=== PATIENT | female | born 1995 | race Two or more races ===

== ENCOUNTER 2020-09-03 10:51 | Emergency (ER) | payer OTHER ==
[~2020-09-03] VITALS: Ht 167.6 cm; Wt 113.4 kg
[2020-09-03 11:20] VITALS: BP 155/90
[2020-09-03] MEDS ORDERED: IBUPROFEN 800 MG TAB PO ONE (12:30)
[2020-09-03] MEDS ORDERED: cefTRIAXone SOD 1,000 MG VL IM ONE (12:30)
== END 2020-09-03 12:33 | disposition home or self-care (01) ==
LOC: ER 10:51
DX: L03.317 Cellulitis of buttock (principal)
CPT/HCPCS: 96372; 99283; J0696

== ENCOUNTER 2020-09-17 09:56 | Emergency (ER) | payer OTHER ==
[~2020-09-17] VITALS: Ht 167.6 cm; Wt 99.8 kg
[2020-09-17 10:20] VITALS: BP 119/77
[2020-09-17 10:31] LABS: Urine Bacteria NONE SEEN /hpf (None Seen); Urine Blood Negative /uL (Negative); Urine Mucus FEW (None Seen); Urine Specific Gravity 1.029 (1.001-1.035); Urine WBC 4 /hpf (0 - 5)
[2020-09-17 10:40] LABS: Basophils # (auto) 0.1 10 ^3/uL (0-0.2); Eosinophils # (auto) 0.1 10 ^3/uL (0-0.8); Lymphocytes # (auto) 2.4 10 ^3/uL (0.4-5.4); Mean Corpuscular Hgb Conc. 32.7 g/dL (32.0-36.0); Monocytes # (auto) 0.7 10 ^3/uL (0-1.3)
[2020-09-17 10:42] LABS: Basophils % (auto) 0.6 % (0.0-2.0); Hemoglobin 11.1 g/dL (12.2-16.2); Lymphocytes % (auto) 31.1 % (10.0-50.0); Mean Corpuscular Hemoglobin 24.1 pg (28.0-32.0); Mean Corpuscular Volume 73.8 fL (80.0-100.0); Monocytes % (auto) 8.6 % (0.0-12.0); Neutrophils # (auto) 4.6 10 ^3/uL (1.6-8.6); Neutrophils % (auto) 58.7 % (37.0-80.0); Nucleated Red Blood Cells % 0.1 %; Red Blood Cells 4.61 10^6/uL (4.0-5.20); Red Cell Distribution Width 18.2 % (11.8-14.3); White Blood Cell 7.8 10^3/uL (4.4-10.8)
[2020-09-17 10:58] LABS: Albumin 3.2 g/dL (3.4-5.0); Calcium 8.2 mg/dL (8.5-10.1); Potassium 3.8 mmol/L (3.5-5.1)
[2020-09-17 11:03] LABS: BUN/Creatinine Ratio 10.6; Bilirubin, Total 0.2 mg/dL (0.2-1.0); Total Protein 7.4 g/dL (6.4-8.2)
== END 2020-09-17 12:03 | disposition home or self-care (01) ==
LOC: ER 09:56
DX: O23.41 Unspecified infection of urinary tract in pregnancy, first trimester (principal); F41.9 Anxiety disorder, unspecified; O99.331 Smoking (tobacco) complicating pregnancy, first trimester; F17.210 Nicotine dependence, cigarettes, uncomplicated; Z3A.08 8 weeks gestation of pregnancy
CPT/HCPCS: 36415; 80053; 81001; 84702; 85025; 93005

== ENCOUNTER 2023-02-12 01:51 | Emergency (ER) | payer MEDICAID, OTHER ==
[~2023-02-12] VITALS: Ht 167.6 cm; Wt 143.0 kg
[2023-02-12 02:23] VITALS: BP 156/105; RESP 18; O2SAT 98
[2023-02-12 02:39] VITALS: PULSE 92
[2023-02-12 03:14] LABS: Basophils # (auto) 0 10 ^3/uL (0-0.2); Basophils % (auto) 0.3 % (0.0-2.0); Eosinophils # (auto) 0.1 10 ^3/uL (0-0.8); Hemoglobin 9.9 g/dL (12.2-16.2); Mean Corpuscular Hemoglobin 21.1 pg (28.0-32.0); Mean Corpuscular Hgb Conc. 30.1 g/dL (32.0-36.0); Monocytes # (auto) 0.5 10 ^3/uL (0-1.3)
[2023-02-12 03:15] LABS: Eosinophils % (auto) 0.9 % (0.0-7.0); Lymphocytes # (auto) 2.6 10 ^3/uL (0.4-5.4); Mean Corpuscular Volume 70.2 fL (80.0-100.0); Neutrophils # (auto) 4.5 10 ^3/uL (1.6-8.6); Neutrophils % (auto) 57.8 % (37.0-80.0); Nucleated Red Blood Cells % 0.1 %; White Blood Cell 7.8 10^3/uL (4.4-10.8)
[2023-02-12 03:22] LABS: Alanine Aminotransferase 29 U/L (7-40); Albumin 4.8 g/dL (3.2-4.8); Alkaline Phosphatase 81 U/L (46-116); Anion Gap 7 (5-15); Aspartate Aminotransferase 20 U/L (13-40); Blood Urea Nitrogen 8 mg/dL (9-23); Carbon Dioxide 24 mmol/L (20-30); Chloride 106 mmol/L (98-107); Glucose 84 mg/dL (74-106); Magnesium 2.2 mg/dL (1.6-2.6); Potassium 4.1 mmol/L (3.5-5.1); Sodium 137 mmol/L (136-145)
[2023-02-12 03:23] LABS: Bilirubin, Total 0.4 mg/dL (0.2-1.0); Total Protein 7.7 g/dL (5.7-8.2)
[2023-02-12 03:28] LABS: Red Cell Distribution Width 20.1 % (11.8-14.3)
[2023-02-12 04:48] LABS: Urine Bacteria NONE SEEN /hpf (None Seen); Urine Blood Negative /uL (Negative); Urine Clarity Clear (Clear); Urine Color Colorless (Yellow); Urine Protein, UAD Negative (Negative); Urine Specific Gravity 1.021 (1.001-1.035); Urine Urobilinogen Normal (Negative); Urine WBC 1 /hpf (0 - 5); Urine pH 6.5 (5.0-8.0)
== END 2023-02-12 05:58 | disposition home or self-care (01) ==
LOC: ER 01:51
DX: R00.2 Palpitations (principal); D64.9 Anemia, unspecified; R07.9 Chest pain, unspecified; K08.89 Other specified disorders of teeth and supporting structures; F17.210 Nicotine dependence, cigarettes, uncomplicated; Z79.899 Other long term (current) drug therapy
CPT/HCPCS: 36415; 71045; 80053; 81001; 83735; 84484; 85025; 93005

== ENCOUNTER 2023-06-30 13:19 | Emergency (ER) | payer MEDICAID ==
[~2023-06-30] VITALS: Ht 167.6 cm; Wt 113.5 kg
[2023-06-30 14:00] VITALS: PULSE 84; RESP 28; O2SAT 96
[2023-06-30 14:35] LABS: Basophils # (auto) 0.1 10 ^3/uL (0-0.2); Basophils % (auto) 0.8 % (0.0-2.0); Eosinophils # (auto) 0.1 10 ^3/uL (0-0.8); Eosinophils % (auto) 1.2 % (0.0-7.0); Hematocrit 39.2 % (36.0-46.0); Hemoglobin 11.8 g/dL (12.2-16.2); Lymphocytes # (auto) 1.2 10 ^3/uL (0.4-5.4); Lymphocytes % (auto) 19.8 % (10.0-50.0); Mean Corpuscular Hgb Conc. 30.2 g/dL (32.0-36.0); Mean Corpuscular Volume 69.7 fL (80.0-100.0); Monocytes # (auto) 0.7 10 ^3/uL (0-1.3); Monocytes % (auto) 11.7 % (0.0-12.0); Neutrophils # (auto) 3.9 10 ^3/uL (1.6-8.6); Neutrophils % (auto) 66.5 % (37.0-80.0); Nucleated Red Blood Cells % 0.1 %; Red Blood Cells 5.62 10^6/uL (4.0-5.20); White Blood Cell 5.9 10^3/uL (4.4-10.8)
[2023-06-30 14:36] LABS: Red Cell Distribution Width 20.7 % (11.8-14.3)
[2023-06-30 14:41] LABS: Chloride 104 mmol/L (98-107); Potassium 3.7 mmol/L (3.5-5.1); Sodium 136 mmol/L (136-145)
[2023-06-30 14:42] LABS: Anion Gap 14 (5-15); Calcium 10.1 mg/dL (8.5-10.1); Carbon Dioxide 18 mmol/L (20-30)
[2023-06-30 14:47] LABS: Glucose 74 mg/dL (74-106)
[2023-06-30 14:50] LABS: Urine Bacteria None Seen /hpf (None Seen)
[2023-06-30 14:54] LABS: BUN/Creatinine Ratio 5.8 (10.0-20.0); Blood Urea Nitrogen < 5 mg/dL (9-23)
[2023-06-30 15:14] LABS: Urine Blood 3+ /uL (Negative); Urine Clarity Turbid (Clear); Urine Color Brown (Yellow); Urine Mucus FEW (None Seen); Urine Protein, UAD 3+ (Negative); Urine Specific Gravity 1.035 (1.001-1.035); Urine Urobilinogen 4 mg/dL (Negative); Urine WBC 121 /hpf (0 - 5); Urine WBC Clumps PRESENT /hpf (None Seen)
[2023-06-30 15:22] LABS: Amphetamine Screen, Urine Neg (NEGATIVE); Barbiturate Scree,Urine Neg (NEGATIVE); Benzodiazephine Screen, Urine Neg (NEGATIVE); Cocaine Screen, Urine Neg (NEGATIVE)
[2023-06-30 15:23] LABS: Cannabinoid Screen, Urine Neg (NEGATIVE); Opiate Scree,Urine Neg (NEGATIVE); Phencyclidine Screen, Urine Neg (NEGATIVE)
[2023-06-30] MEDS ORDERED: NITR-87 PO (15:55)
[2023-06-30] MEDS: SODIUM CHLORIDE 0.9% 1,000 ML IV ONE (16:09)
[2023-06-30] MEDS: cefTRIAXone 1GM/50ML D5W 50 ML IV ONE (16:12)
[2023-06-30 17:00] VITALS: BP 126/91; PULSE 79; RESP 22; O2SAT 100
== END 2023-06-30 17:28 | disposition home or self-care (01) ==
LOC: EDBD 13:19 → ER 13:19
DX: N39.0 Urinary tract infection, site not specified (principal); F17.210 Nicotine dependence, cigarettes, uncomplicated; R53.1 Weakness; Z79.899 Other long term (current) drug therapy
CPT/HCPCS: 36415; 80048; 80307; 81001; 85025; 93005; 96365; 99285; J0696; J7030

== ENCOUNTER 2024-01-29 17:47 | Emergency (ER) | payer MEDICAID ==
[~2024-01-29] VITALS: Ht 170.2 cm; Wt 90.0 kg
[~2024-01-29 17:47] MED LIST: NITR-87 PO
--- NOTE | 2024-01-29 17:58 | ECG ---
[facility] Test Date: 2024-01-29 Test Time: 17:57:21 Pat Name: ILANA HERNANDEZ Department: er Room: Gender: F Cephalometric Analyst: yolanda : 1995 Requested By: ANTONI NICHOLAS Order Number: [id number] Reading MD: Darci Stark Measurements Intervals [place] Rate: 81 P: 37 MO: 164 QRS: 73 QRSD: 82 T: 25 QT: 336 QTc: 390 Interpretive Statements Sinus rhythm Low voltage, precordial leads Electronically Signed On 02-03-2024 12:33:25 PST by Darci Stark Please click the below link to view image of tracing.
--- NOTE | 2024-01-29 18:08 | ED.PDOC ---
History of Present Illness HPI Comments 28F BIBA w/ no prior Hx associated to the c/c of of palpitations. The palpitation was witnessed by the first responders who arrived on scene first, and the pt was sinus rhythm w/ PVC. Pt notes that she was sitting on her bed when palpitations began. PMHx of HTN, Asthma, and Anxiety. Denies chills, fever, N/V/D, SOB, CP or other associated symptoms, modifiers, or recent injuries at this time. Chief Complaint: Palpitations Time Seen by MD: 17:45 Primary Care Provider: BENJI Reviewed Notes: Nurses Notes, Medications, Allergies Allergies: Coded Allergies: No Known Drug Allergy (Verified Allergy, Unknown, 09/03/20) Home Meds Active Scripts Nitrofurantoin Monohydrate Mac (Macrobid) 100 Mg Cap, 100 MG PO BID for 7 Days, #14 CAP Prov:MANFRED MORALES MD 06/30/23 Information Source: Patient Mode of Arrival: EMS Severity: Moderate Timing: Minutes Duration: Since onset, Minutes Prehospital treatment: None Past Medical History PAST MEDICAL HISTORY: Anxiety, Asthma, HTN Surgical History: Denies all surgeries PUBLIC FINANCE SPECIALIST History: Denies all PUBLIC FINANCE SPECIALIST Hx Family History Family History: Reviewed,noncontributory to illness, Unknown Social History Smoker: Unknown Alcohol: Unknown Drugs: Unknown Lives In: Home Constitutional: denies: chills, diaphoresis, fatigue, fever, malaise, sweats, weakness, others EENTM: denies: blurred vision, double vision, ear bleeding, ear discharge, ear drainage, ear pain, ear ringing, eye pain, eye redness, hearing loss, mouth pain, mouth swelling, nasal discharge, nose bleeding, nose congestion, nose pain, photophobia, tearing, throat pain, throat swelling, voice changes, others Respiratory: denies: cough, hemoptysis, orthopnea, SOB at rest, shortness of breath, SOB with excertion, stridor, wheezing, others Cardiovascular: reports: chest pain, palpitations; denies: dizzy spells, diaphoresis, Dyspnea on exertion, edema, irregular heart beat, left arm pain, lightheadedness, PND, syncope, others Gastrointestinal: denies: abdomen distended, abdominal pain, blood streaked bowels, constipated, diarrhea, dysphagia, difficulty swallowing, hematemesis, melena, nausea, poor appetite, poor fluid intake, rectal bleeding, rectal pain, vomiting, others Genitourinary: denies: abnormal vagina bleeding, burning, dyspareunia, dysuria, flank pain, frequency, hematuria, incontinence, pain, , vagina discharge, urgency, others Neurological: denies: dizziness, fainting, headache, left sided numbness, left sided weakness, numbness, paresthesia, pre-existing deficit, right sided numbness, right sided weakness, seizure, speech problems, tingling, tremors, weakness, others Musculoskeletal: denies: back pain, gout, joint pain, joint swelling, muscle p ain, muscle stiffness, neck pain, others Integumetry: denies: bruises, change in color, change in hair/nails, dryness, laceration, lesions, lumps, rash, wounds, others Allergic/Immunocompromised: denies: Difficulty Healing, Frequent Infections, Hives, Itching, others Hematologic/Lymphatic: denies: anemia, blood clots, easy bleeding, easy bruising, swollen glands, others Endocrine: denies: excessive hunger, excessive sweating, excessive thirst, excessive urination, flushing, intolerance to cold, intolerance to heat, unexplained weight gain, unexplained weight loss, others Psychiatric: denies: anxiety, bipolar disorder, depression, hopeless, panic disorder, schizophrenia, sleepless, suicidal, others All Other Systems: Reviewed and Negative Physical Exam General Appearance: No Apparent Distress, Normal HEENT: Normal ENT Inspection, Pharynx Normal, TMs Normal Neck: Full Range of Motion, Non-Tender, Normal, Normal Inspection Respiratory: Chest Non-Tender, Lungs Clear, No Accessory Muscle Use, No Respiratory Distress, Normal Breath Sounds Cardiovascular: No Edema, No JVD, No Murmur, No Gallop, Normal Peripheral Pulses, Regular Rate/Rhythm Breast Exam: Deferred Gastrointestinal: No Organomegaly, Non Tender, No Pulsatile Mass, Normal Bowel Sounds, Soft Genitalia: Deferred Pelvic: Deferred Rectal: Deferred Extremities: No calf tenderness, Normal capillary refill, Normal inspection, Normal range of motion, Non-tender, No pedal edema Musculoskeletal : Apperance: Normal Neurologic: Alert, data security analyst II-XII nml as Tested, No Motor Deficits, Normal Affect, Normal Mood, No Sensory Deficits Cerebellar Function: Normal Reflexes: Normal Skin: Dry, Normal Color, Warm Lymphatic: No Adenopathy Was a procedure done? Was a procedure done?: No EKG EKG : Pulse Rate (adult): 81 Decker: Normal Cardiac Rhythm: NSR Block: None Hypertrophy: None ST: Normal Differential Dx Considerations may include: svt, afib, aflutter, vt, vfib, other arrhythmias X-Ray, Labs, Meds, VS Vital Signs Date Time Temp Pulse Resp B/P (MAP) Pulse Ox O2 Delivery O2 Flow Rate FiO2 01/29/24 18:08 81 01/29/24 17:53 98.3 80 16 138/71 (93) 99 Lab Test 01/29/24 18:09 Range/Units White Blood Count 6.6 4.4-10.8 10^3/uL Red Blood Count 4.73 4.0-5.20 10^6/uL Hemoglobin 9.9 L 12.2-16.2 g/dL Hematocrit 32.9 L 36.0-46.0 % Mean Corpuscular Volume 69.5 L 80.0-100.0 fL Mean Corpuscular Hemoglobin 20.9 L 28.0-32.0 pg Mean Corpuscular Hemoglobin Concent 30.1 L 32.0-36.0 g/dL Red Cell Distribution Width 22.0 H 11.8-14.3 % Platelet Count 321 140-450 10^3/uL Mean Platelet Volume 7.7 6.9-10.8 fL Neutrophils (%) (Auto) 63.3 37.0-80.0 % Lymphocytes (%) (Auto) 26.9 10.0-50.0 % Monocytes (%) (Auto) 8.7 0.0-12.0 % Eosinophils (%) (Auto) 0.6 0.0-7.0 % Basophils (%) (Auto) 0.5 0.0-2.0 % Neutrophils # (Auto) 4.1 1.6-8.6 10 ^3/uL Lymphocytes # (Auto) 1.8 0.4-5.4 10 ^3/uL Monocytes # (Auto) 0.6 0-1.3 10 ^3/uL Eosinophils # (Auto) 0 0-0.8 10 ^3/uL Basophils # (Auto) 0 0-0.2 10 ^3/uL Nucleated Red Blood Cells 0.1 % Sodium Level 140 136-145 mmol/L Potassium Level 3.6 3.5-5.1 mmol/L Chloride Level 112 H 98-107 mmol/L Carbon Dioxide Level 19 L 20-31 mmol/L Anion Gap 9 5-15 Blood Urea Nitrogen < 5 L 9-23 mg/dL Creatinine 0.79 0.550-1.02 mg/dL Glomerular Filtration Rate Calc 103 >90 mL/min BUN/Creatinine Ratio 6.3 L 10.0-20.0 Serum Glucose 84 74-106 mg/dL Calcium Level 9.5 8.7-10.4 mg/dL Troponin I High Sensitivity < 3 L </=34 ng/L Beta HCG, Quantitative Pending Time of 1ST Reevaluation: 18:15 Reevaluation 1ST: Unchanged Patient Education/Counseling: Diagnosis, Treatment, Prognosis, Need For Follow Up Family Education/Counseling: Other (Other family members that were there were the pt's little kids) Additional Information I reviewed the following notes from patient's past medical encounters:06/30/23 The following tests were ordered, and results were reviewed by me: Labs, XY, EKG I reviewed and agreed with the following test results read by other providers: X-Ray I discussed treatment and results with medical personnel pt appears anxious. investments manager captured only occasional PVCs. we have not captured any arrhythmias. pt's cardiac workup is unremarkable. she is stable to follow up with her PCP Departure 1 Departure Time of Disposition: 19:21 Impression: Primary Impression: Palpitations Disposition: HOME / SELF CARE / HOMELESS Condition: Good Additional Instructions: follow up with your doctor on Tuesday. feel free to return for anything concerning Discharged With: Self Critical Care Note Critical Care Time?: No Stability Stability form required: No I personally scribed for FELICIA ACOSTA MD ([email or web address]) on 01/29/24 at 18:08. Electronically submitted by Suhail Perez ([email or web address]). FELICIA ACOSTA MD Jan 29, 2024 18:08
[2024-01-29 18:26] LABS: Basophils # (auto) 0 10 ^3/uL (0-0.2); Basophils % (auto) 0.5 % (0.0-2.0); Eosinophils # (auto) 0 10 ^3/uL (0-0.8); Eosinophils % (auto) 0.6 % (0.0-7.0); Hematocrit 32.9 % (36.0-46.0); Hemoglobin 9.9 g/dL (12.2-16.2); Lymphocytes # (auto) 1.8 10 ^3/uL (0.4-5.4); Lymphocytes % (auto) 26.9 % (10.0-50.0); Mean Corpuscular Hemoglobin 20.9 pg (28.0-32.0); Mean Corpuscular Hgb Conc. 30.1 g/dL (32.0-36.0); Mean Corpuscular Volume 69.5 fL (80.0-100.0); Monocytes # (auto) 0.6 10 ^3/uL (0-1.3); Monocytes % (auto) 8.7 % (0.0-12.0); Neutrophils # (auto) 4.1 10 ^3/uL (1.6-8.6); Neutrophils % (auto) 63.3 % (37.0-80.0); Nucleated Red Blood Cells % 0.1 %; Platelet Count (auto) 321 10^3/uL (140-450); Red Blood Cells 4.73 10^6/uL (4.0-5.20); White Blood Cell 6.6 10^3/uL (4.4-10.8)
[2024-01-29 18:43] LABS: Potassium 3.6 mmol/L (3.5-5.1); Sodium 140 mmol/L (136-145)
[2024-01-29 18:44] LABS: Anion Gap 9 (5-15); Calcium 9.5 mg/dL (8.7-10.4)
[2024-01-29 18:49] LABS: Glucose 84 mg/dL (74-106)
[2024-01-29 18:52] LABS: BUN/Creatinine Ratio 6.3 (10.0-20.0); Blood Urea Nitrogen < 5 mg/dL (9-23); Carbon Dioxide 19 mmol/L (20-31); Chloride 112 mmol/L (98-107)
--- NOTE | 2024-01-29 19:14 | DVH ---
XY CHEST PORTABLE, HISTORY: palpitations COMPARISON: XY CHEST PORTABLE on DOS: 02/12/23 XY CHEST PORTABLE on DOS: 02/12/23 TECHNICAL DATA: 1 view of the chest was obtained. FINDINGS: Lines and tubes: None Cardiomediastinal silhouette: normal Pulmonary vasculature: normal Lung expansion: normal Lung airspace: normal Lung interstitium: normal Pleura: normal Pneumothorax: no Bones: Unremarkable Other: no IMPRESSION: No acute intrathoracic abnormality.
[2024-01-29 19:38] VITALS: BP 131/82; PULSE 87; RESP 16; O2SAT 97
== END 2024-01-29 19:40 | disposition home or self-care (01) ==
LOC: EDBD 17:47 → ER 17:47
DX: R00.2 Palpitations (principal); I10 Essential (primary) hypertension; F17.200 Nicotine dependence, unspecified, uncomplicated; F41.9 Anxiety disorder, unspecified; J45.909 Unspecified asthma, uncomplicated
CPT/HCPCS: 36415; 71045; 80048; 84484; 84702; 85025; 93005